=== PATIENT | female | born 1950 | race Caucasian/White ===

== ENCOUNTER 2017-06-15 16:26 | Emergency (ER) | payer MEDICARE, BC ==
[2017-06-15] MEDS ORDERED: Sodium Chloride 0.9% 1,000 ML IV SCH (17:15)
--- NOTE | 2017-06-15 17:15 | EDM.PDOC ---
ED HPI GENERAL MEDICAL PROBLEM - General Chief Complaint: Flank Pain Stated Complaint: KIDNEY STONE Time Seen by Provider: 06/15/17 17:10 Source of Information: Reports: Patient, Family History Limitations: Reports: No Limitations - History of Present Illness INITIAL COMMENTS - FREE TEXT/NARRATIVE: pt has left flank pain. This was vry severe for a while and she was vomiting. Onset: Other ( Some pain in the last 2-3 days. ) Duration: Day(s):, Colic Location: Reports: Back, Other ( flank area. ) Associated Symptoms: Reports: No Other Symptoms - Related Data Allergies Allergy/AdvReac Type Severity Reaction Status Date / Time No Known Allergies Allergy Verified 06/15/17 16:57 Past Medical History Cardiovascular History: Reports: High Cholesterol Genitourinary History: Reports: Renal Calculus Endocrine/Metabolic History: Reports: Hyperparathyroidism Social & Family History - Tobacco Use Smoking Status *Q: Never Smoker ED ROS GENERAL - Review of Systems Review Of Systems: See Below Constitutional: Reports: No Symptoms HEENT: Reports: No Symptoms Respiratory: Reports: No Symptoms Cardiovascular: Reports: No Symptoms Endocrine: Reports: No Symptoms GI/Abdominal: Reports: Other (pt has flank pain) : Reports: Flank Pain, Other (no dysuria. ) Musculoskeletal: Reports: No Symptoms Skin: Reports: No Symptoms Psychiatric: Reports: Anxiety ED EXAM, RENAL/ - Physical Exam Exam: See Below Text/Narrative:: pt has been having pain in the left flank This has been on and off for the past 2-3 days. Exam Limited By: No Limitations General Appearance: Alert, Anxious, Mild Distress Ears: Normal TMs Nose: Normal Inspection Throat/Mouth: Normal Inspection Head: Atraumatic Neck: Normal Inspection Respiratory/Chest: No Respiratory Distress Cardiovascular: Regular Rate, Rhythm GI/Abdominal: Soft, Non-Tender (Female) Exam: Deferred Rectal (Female) Exam: Deferred Back Exam: Normal Inspection Extremities: Normal Inspection Neurological: Alert, Oriented, Normal Cognition Psychiatric: Normal Affect Course - Vital Signs Last Recorded V/S: Last Vital Signs Temp 36.7 C 06/15/17 17:02 Pulse 86 06/15/17 17:02 Resp 16 06/15/17 17:02 BP Pulse Ox 97 06/15/17 17:02 - Orders/Labs/Meds Orders: Active Orders 24 hr Category Date Time Status Abdomen Pelvis wo Cont [CT] Stat Exams 06/15/17 17:09 Taken Sodium Chloride 0.9% [Normal Saline] 1,000 ml Med 06/15/17 17:15 Active IV ASDIRECTED Medication Orders Sodium Chloride (Normal Saline) 1,000 mls @ 999 mls/hr IV ASDIRECTED APOLLO Last Admin: 06/15/17 17:17 Dose: 999 mls/hr Labs: Laboratory Tests 06/15/17 06/15/17 06/15/17 Range/Units 16:58 17:15 17:15 WBC 10.5 (4.5-11.0) K/uL RBC 4.27 (3.30-5.50) M/uL Hgb 12.5 (12.0-15.0) g/dL Hct 38.0 (36.0-48.0) % MCV 89 (80-98) fL MCH 29 (27-31) pg MCHC 33 (32-36) % Plt Count 347 (150-400) K/uL Neut % (Auto) 72 H (36-66) % Lymph % (Auto) 20 L (24-44) % [place] % (Auto) 7 H (2-6) % Eos % (Auto) 1 L (2-4) % Baso % (Auto) 1 (0-1) % Sodium 140 (140-148) mmol/L Potassium 3.7 (3.6-5.2) mmol/L Chloride 108 (100-108) mmol/L Carbon Dioxide 24 (21-32) mmol/L Anion Gap 8.2 (5.0-14.0) mmol/L BUN 26 H (7-18) mg/dL Creatinine 1.0 (0.6-1.0) mg/dL Est Cr Clr Drug Dosing 48.79 mL/min Estimated GFR (MDRD) 55 L (>60) Glucose 111 H (74-106) mg/dL Calcium 9.1 (8.5-10.1) mg/dL Total Bilirubin 0.3 (0.2-1.0) mg/dL AST 14 L (15-37) U/L ALT 24 (12-78) U/L Alkaline Phosphatase 49 (46-116) U/L Total Protein 7.6 (6.4-8.2) g/dL Albumin 3.9 (3.4-5.0) g/dL Globulin 3.7 H (2.3-3.5) g/dL Albumin/Globulin Ratio 1.1 L (1.2-2.2) Urine Color Yellow Urine Appearance Cloudy Urine pH 5.0 (4.5-8.0) Ur Specific [place] 1.025 (1.008-1.030) Urine Protein 30 H (NEGATIVE) mg/dL Urine Glucose (UA) Normal (NEGATIVE) mg/dL Urine Ketones Negative (NEGATIVE) mg/dL Urine Occult Blood Large (NEGATIVE) Urine Nitrite Negative (NEGATIVE) Urine Bilirubin Negative (NEGATIVE) Urine Urobilinogen Normal (NORMAL) mg/dL Ur Leukocyte Esterase Negative (NEGATIVE) Urine RBC Semi-packed H (0-5) Urine WBC 5-10 H (0-5) Ur Epithelial Cells Moderate Amorphous Sediment Few Urine Bacteria Few Urine Mucus Few Urine Other See note Meds: Medications Generic Name Dose Route Start Last Admin Trade Name Freq PRN Reason Stop Dose Admin Sodium Chloride 1,000 mls @ 999 mls/hr 06/15/17 17:15 06/15/17 17:17 Normal Saline IV 999 mls/hr ASDIRECTED APOLLO Administration - Re-Assessments/Exams Free Text/Narrative Re-Assessment/Exam: 06/15/17 17:25 pt arrived with pain in the left flank. She has a packed field of rbcs . 06/15/17 18:12 cat scan showed a 7 mm stone in the pelvis of the left kidney. This is probably causing the pain Departure - Departure Time of Disposition: 18:13 Disposition: Home, Self-Care 01 Condition: Fair Clinical Impression: Kidney stone on left side - Discharge Information Referrals: PCP,None [Primary Care Provider] - Forms: ED Department Discharge Care Plan Goals: torodol 10mg q6h prn for pain, push fluids, appt with urology, zoforan 4mg q6h prn for nausea. - My Orders Last 24 Hours: My Active Orders 06/15/17 17:09 Abdomen Pelvis wo Cont [CT] Stat 06/15/17 17:15 Sodium Chloride 0.9% [Normal Saline] 1,000 ml IV ASDIRECTED - Assessment/Plan Last 24 Hours: My Active Orders 06/15/17 17:09 Abdomen Pelvis wo Cont [CT] Stat 06/15/17 17:15 Sodium Chloride 0.9% [Normal Saline] 1,000 ml IV ASDIRECTED
== END 2017-06-15 18:59 | disposition home or self-care (01) ==
LOC: JP.ED 16:26
DX: N20.0 Calculus of kidney (principal); E78.00 Pure hypercholesterolemia, unspecified; E21.3 Hyperparathyroidism, unspecified
CPT/HCPCS: 36415; 74176; 80053; 81001; 85025; 96360; 99284; J7040

== ENCOUNTER 2021-05-03 06:16 | Day surgery (SDC) | payer MEDICARE, BC ==
[2021-05-03] MEDS ORDERED: Sodium Chloride 0.9% 10 ML Syringe FLUSH PRN (07:15)
[2021-05-03 08:08] VITALS: BP 163/86; PULSE 72
--- NOTE | 2021-05-03 16:08 | OR ---
DATE OF PROCEDURE: 05/03/2021 SURGEON: Patti Rivera MD POSTOPERATIVE CARE: Postoperative care will be provided mainly at the [address] [place] [address] [facility] in conjunction with [facility]. PREOPERATIVE DIAGNOSIS: Cataract, left eye. POSTOPERATIVE DIAGNOSIS: Cataract, left eye. PROCEDURE: Phacoemulsification with intraocular lens placement, left eye. ANESTHESIA: Topical and intracameral. ESTIMATED BLOOD LOSS: Minimal. COMPLICATIONS: None. PATHOLOGY SPECIMENS: None. SURGICAL FINDINGS: None. INDICATION FOR PROCEDURE: The patient is a 70-year-old female with history of a visually significant cataract in the left eye, which interfered with activities of daily living. This consisted of a nuclear sclerosis cataract. Following careful discussion of the risks, benefits and alternatives to cataract extraction with intraocular lens placement including blindness and , the patient elected to proceed, and informed, written consent was obtained prior to the procedure. DESCRIPTION OF THE PROCEDURE: The patient was previously identified, and a frantz placed above the left eye. All sources, including the patient, indicated that the left eye was the correct eye. The patient was subsequently taken to the operating room where standard monitors were applied. The patient was then prepped and draped in the usual sterile fashion for ophthalmic surgery. Attention was first directed at the 12 o'clock position where a paracentesis port was fashioned. Shugar solution followed by Viscoat was instilled into the eye. Attention was then directed to the 8:30 position where a triplanar incision was made in a near-clear manner using a keratome. A continuous capsulorrhexis was then made using a combination of the cystotome and Utrata forceps. Hydrodissection was achieved using a balanced salt solution, and the lens rotated nicely. Phacoemulsification was then done using a modified [id number] technique without complication. Phaco time was 9.2 CDE. The remaining cortex was removed using the irrigation/aspiration handpiece. Provisc was then instilled into the eye. A Technis lens, model DCB00, at 21.5 diopters was then placed in the capsular bag using an [place] injector. The remaining viscoelastic was removed using the irrigation/aspiration forceps. All wounds were then checked and found to be watertight. The lid speculum and drapes were removed. Maxitrol ointment was placed in the patient's left eye, and the eye was shielded. The patient tolerated the procedure well. The patient was instructed to follow up tomorrow. All needle and sponge counts were correct at the end of the procedure. Patti Rivera MD /[id number]
== END 2021-05-03 08:12 | disposition home or self-care (01) ==
LOC: JP.SDS 06:16
PROVIDERS: ATTEND Ophthalmology
DX: H25.12 Age-related nuclear cataract, left eye (principal); E78.5 Hyperlipidemia, unspecified; E21.3 Hyperparathyroidism, unspecified; Z91.040 Latex allergy status
CPT/HCPCS: 66984; V2632

== ENCOUNTER 2022-10-05 13:49 | Emergency (ER) | payer MEDICARE, BC ==
[2022-10-05 14:13] VITALS: BP 129/89; PULSE 97
== END 2022-10-05 14:42 | disposition home or self-care (01) ==
LOC: JP.ED 13:49
DX: N39.0 Urinary tract infection, site not specified (principal); E78.00 Pure hypercholesterolemia, unspecified; I10 Essential (primary) hypertension; Z91.040 Latex allergy status; Z79.899 Other long term (current) drug therapy
CPT/HCPCS: 81001; 87086; 87088; 87186; 99284

== ENCOUNTER 2023-03-27 13:55 | Emergency (ER) | payer MEDICARE, BC ==
[2023-03-27 14:57] LABS: BASOPHILS ABSOLUTE AUTO 0.05 K/uL (0.00-0.10); BASOPHILS PERCENT AUTO 0.4 % (0.1-1.3); EOSINOPHILS ABSOLUTE AUTO 0.13 K/uL (0.00-0.40); EOSINOPHILS PERCENT AUTO 1.2 % (0.0-5.4); HEMATOCRIT 33.4 % (34.3-46.0); HEMOGLOBIN 11.3 g/dL (11.2-15.5); IMMATURE GRAN ABSOLUTE AUTO 0.05 K/uL (0.00-0.23); IMMATURE GRAN PERCENT AUTO 0.4 % (0.0-0.7); LYMPHOCYTES ABSOLUTE AUTO 1.79 K/uL (0.8-3.3); LYMPHOCYTES PERCENT AUTO 16.1 % (11.4-47.7); MEAN CORPUSCULAR HEMOGLOBIN 30.3 pg (31.6-35.5); MEAN CORPUSCULAR HGB CONC 33.8 g/dL (31.6-35.5); MEAN CORPUSCULAR VOLUME 89.5 fL (81.4-99.0); MONOCYTES ABSOLUTE AUTO 0.58 K/uL (0.20-0.90); MONOCYTES PERCENT AUTO 5.2 % (3.3-12.6); NEUTROPHILS ABSOLUTE AUTO 8.55 K/uL (1.0-7.6); NEUTROPHILS PERCENT AUTO 76.7 % (40.0-78.1); PLATELET COUNT,PLT 332 K/uL (130-375); RED BLOOD CELL COUNT 3.73 M/uL (3.77-5.24); WHITE BLOOD CELL COUNT,WBC 11.2 K/uL (3.2-11.0)
[2023-03-27 15:20] LABS: CALCIUM 8.7 mg/dL (8.5-10.1); EST CRCL DRUG DOSING (CG) 47.18 mL/min; POTASSIUM,K 3.6 mmol/L (3.6-5.2)
[2023-03-27 15:21] LABS: ANION GAP 14.6 mmol/L (5.0-14.0)
[2023-03-27] MEDS ORDERED: Aspirin 81 MG Tab.Chew PO ONE (15:23)
[2023-03-27] MEDS ORDERED: Heparin Sodium 5,000 Units/ML Vial IVPUSH ONE (16:43)
[2023-03-27] MEDS ORDERED: Heparin Sodium/D5W 25,000 UNITS/500 ML BAG IV SCH (16:45)
[2023-03-27 18:51] VITALS: BP 121/81; PULSE 82
== END 2023-03-27 18:51 ==
LOC: JP.ED 13:55
DX: I21.4 Non-ST elevation (NSTEMI) myocardial infarction (principal); I10 Essential (primary) hypertension; E78.00 Pure hypercholesterolemia, unspecified; K21.9 Gastro-esophageal reflux disease without esophagitis; Z91.040 Latex allergy status; Z79.899 Other long term (current) drug therapy
CPT/HCPCS: 36415; 80048; 84484; 85025; 93005; 96365; 96376; 99285; A9270; J1644

== ENCOUNTER 2023-04-04 10:12 | Emergency (ER) | payer MEDICARE, BC ==
[2023-04-04 11:30] LABS: BASOPHILS ABSOLUTE AUTO 0.04 K/uL (0.00-0.10); BASOPHILS PERCENT AUTO 0.4 % (0.1-1.3); EOSINOPHILS ABSOLUTE AUTO 0.18 K/uL (0.00-0.40); EOSINOPHILS PERCENT AUTO 1.7 % (0.0-5.4); HEMATOCRIT 20.7 % (34.3-46.0); IMMATURE GRAN ABSOLUTE AUTO 0.08 K/uL (0.00-0.23); IMMATURE GRAN PERCENT AUTO 0.8 % (0.0-0.7); LYMPHOCYTES ABSOLUTE AUTO 2.29 K/uL (0.8-3.3); LYMPHOCYTES PERCENT AUTO 22.1 % (11.4-47.7); MEAN CORPUSCULAR HEMOGLOBIN 30.8 pg (31.6-35.5); MEAN CORPUSCULAR HGB CONC 33.3 g/dL (31.6-35.5); MEAN CORPUSCULAR VOLUME 92.4 fL (81.4-99.0); MONOCYTES ABSOLUTE AUTO 0.64 K/uL (0.20-0.90); MONOCYTES PERCENT AUTO 6.2 % (3.3-12.6); NEUTROPHILS ABSOLUTE AUTO 7.11 K/uL (1.0-7.6); NEUTROPHILS PERCENT AUTO 68.8 % (40.0-78.1); PLATELET COUNT,PLT 303 K/uL (130-375); RED BLOOD CELL COUNT 2.24 M/uL (3.77-5.24); WHITE BLOOD CELL COUNT,WBC 10.3 K/uL (3.2-11.0)
[2023-04-04 11:34] LABS: HEMOGLOBIN 6.9 g/dL (11.2-15.5)
[2023-04-04 11:51] LABS: A/G RATIO 0.9 (1.2-2.2); ALANINE AMINOTRANSFERASE,ALT 51 U/L (12-78); ALKALINE PHOSPHATASE 66 U/L (46-116); ANION GAP 12.9 mmol/L (5.0-14.0); ASPARTATE AMNIOTRANSFERASE,AST 29 U/L (15-37); BILIRUBIN TOTAL 0.3 mg/dL (0.2-1.0); BLOOD UREA NITROGEN,BUN 24 mg/dL (7-18); CALCIUM 8.3 mg/dL (8.5-10.1); CARBON DIOXIDE,CO2 21 mmol/L (21-32); CHLORIDE,CL 107 mmol/L (100-108); CREATININE 0.8 mg/dL (0.6-1.0); ESTIMATED GFR 79 mL/min (>60); GLUCOSE RANDOM 106 mg/dL (74-106); POTASSIUM,K 3.9 mmol/L (3.6-5.2); PROTEIN TOTAL,TP 6.3 g/dL (6.4-8.2); SODIUM,NA 137 mmol/L (140-148)
[2023-04-04] MEDS ORDERED: Sodium Chloride 0.9% 10 ML Syringe FLUSH PRN (12:34)
[2023-04-04 14:50] VITALS: BP 119/73; PULSE 85
== END 2023-04-04 15:00 ==
LOC: JP.ED 10:12
DX: K92.2 Gastrointestinal hemorrhage, unspecified (principal); K21.9 Gastro-esophageal reflux disease without esophagitis; E78.00 Pure hypercholesterolemia, unspecified; I10 Essential (primary) hypertension; Z91.048 Other nonmedicinal substance allergy status; Z79.82 Long term (current) use of aspirin; Z79.899 Other long term (current) drug therapy
CPT/HCPCS: 36415; 36430; 80053; 82270; 85025; 86850; 86900; 86901; 86920; 86922; 99285; J3490; P9016

== ENCOUNTER 2023-04-11 07:21 | Emergency (ER) | payer MEDICARE, BC ==
[2023-04-11 08:12] LABS: BASOPHILS ABSOLUTE AUTO 0.05 K/uL (0.00-0.10); BASOPHILS PERCENT AUTO 0.5 % (0.1-1.3); EOSINOPHILS ABSOLUTE AUTO 0.25 K/uL (0.00-0.40); EOSINOPHILS PERCENT AUTO 2.5 % (0.0-5.4); HEMATOCRIT 21.8 % (34.3-46.0); HEMOGLOBIN 7.1 g/dL (11.2-15.5); IMMATURE GRAN ABSOLUTE AUTO 0.07 K/uL (0.00-0.23); IMMATURE GRAN PERCENT AUTO 0.7 % (0.0-0.7); LYMPHOCYTES ABSOLUTE AUTO 2.51 K/uL (0.8-3.3); LYMPHOCYTES PERCENT AUTO 24.8 % (11.4-47.7); MEAN CORPUSCULAR HEMOGLOBIN 30.9 pg (31.6-35.5); MEAN CORPUSCULAR HGB CONC 32.6 g/dL (31.6-35.5); MEAN CORPUSCULAR VOLUME 94.8 fL (81.4-99.0); MONOCYTES ABSOLUTE AUTO 0.58 K/uL (0.20-0.90); MONOCYTES PERCENT AUTO 5.7 % (3.3-12.6); NEUTROPHILS ABSOLUTE AUTO 6.67 K/uL (1.0-7.6); NEUTROPHILS PERCENT AUTO 65.8 % (40.0-78.1); PLATELET COUNT,PLT 440 K/uL (130-375); WHITE BLOOD CELL COUNT,WBC 10.1 K/uL (3.2-11.0)
[2023-04-11] MEDS ORDERED: Pantoprazole 40 MG Vial IVPUSH ONE (14:37)
[2023-04-11 16:10] VITALS: BP 140/85; PULSE 82
== END 2023-04-11 16:38 | disposition home or self-care (01) ==
LOC: JP.ED 07:21
DX: K92.2 Gastrointestinal hemorrhage, unspecified (principal); E78.00 Pure hypercholesterolemia, unspecified; K21.9 Gastro-esophageal reflux disease without esophagitis; I10 Essential (primary) hypertension; Z95.5 Presence of coronary angioplasty implant and graft; Z91.040 Latex allergy status; Z79.82 Long term (current) use of aspirin; Z79.899 Other long term (current) drug therapy
CPT/HCPCS: 36415; 36430; 85025; 86850; 86900; 86901; 86920; 86922; 96374; 99284; C9113; P9016

== ENCOUNTER 2023-10-17 09:24 | Emergency (ER) | payer MEDICARE, BC ==
[2023-10-17] MEDS ORDERED: Sodium Chloride 0.9% 10 ML Syringe FLUSH PRN ×2 (09:58→10:11)
[2023-10-17] MEDS ORDERED: Sodium Chloride 0.9% 500 ML IV ONE (10:00)
[2023-10-17] MEDS ORDERED: Pantoprazole 40 MG Vial IVPUSH ONE ×2 (10:00→10:11)
[2023-10-17 10:05] LABS: BASOPHILS ABSOLUTE AUTO 0.05 K/uL (0.00-0.10); BASOPHILS PERCENT AUTO 0.4 % (0.1-1.3); EOSINOPHILS ABSOLUTE AUTO 0.13 K/uL (0.00-0.40); HEMATOCRIT 20.7 % (34.3-46.0); IMMATURE GRAN ABSOLUTE AUTO 0.18 K/uL (0.00-0.23); IMMATURE GRAN PERCENT AUTO 1.3 % (0.0-0.7); LYMPHOCYTES ABSOLUTE AUTO 3.44 K/uL (0.8-3.3); LYMPHOCYTES PERCENT AUTO 25.6 % (11.4-47.7); MEAN CORPUSCULAR HEMOGLOBIN 30.2 pg (31.6-35.5); MEAN CORPUSCULAR HGB CONC 32.4 g/dL (31.6-35.5); MEAN CORPUSCULAR VOLUME 93.2 fL (81.4-99.0); MONOCYTES PERCENT AUTO 5.2 % (3.3-12.6); NEUTROPHILS ABSOLUTE AUTO 8.92 K/uL (1.0-7.6); NEUTROPHILS PERCENT AUTO 66.5 % (40.0-78.1); PLATELET COUNT,PLT 432 K/uL (130-375); RED BLOOD CELL COUNT 2.22 M/uL (3.77-5.24); WHITE BLOOD CELL COUNT,WBC 13.4 K/uL (3.2-11.0)
[2023-10-17 10:06] LABS: HEMOGLOBIN 6.7 g/dL (11.2-15.5)
[2023-10-17 10:19] LABS: BLOOD UREA NITROGEN,BUN 26 mg/dL (7-18); CALCIUM 8.2 mg/dL (8.5-10.1); CARBON DIOXIDE,CO2 20 mmol/L (21-32); CHLORIDE,CL 105 mmol/L (100-108); CREATININE 0.9 mg/dL (0.6-1.0); ESTIMATED GFR 68 mL/min (>60); GLUCOSE RANDOM 161 mg/dL (74-106); POTASSIUM,K 3.9 mmol/L (3.6-5.2); SODIUM,NA 138 mmol/L (140-148)
[2023-10-17 10:27] LABS: ANION GAP 16.9 mmol/L (5.0-14.0)
[2023-10-17 10:28] LABS: TROPONIN I HIGH SENSITIVITY 63.7 pg/mL (<=60.3)
[2023-10-17 10:35] LABS: PROTHROMBIN TIME 9.9 sec (9.2-10.6); PTT,PARTIAL THROMBOPLSTIN TIME 22.1 sec (21.8-27.3)
[2023-10-17 10:50] LABS: CORONAVIRUS COVID-19 NAA NEGATIVE (NEGATIVE); INFLUENZA A NAA NEGATIVE (NEGATIVE); INFLUENZA B NAA NEGATIVE (NEGATIVE); RESPIRATORY SYNCYTIAL VIR NAA NEGATIVE (NEGATIVE)
[2023-10-17 16:09] LABS: HEMOGLOBIN 8.9 g/dL (11.2-15.5)
[2023-10-17 17:01] VITALS: BP 157/94; PULSE 84
== END 2023-10-17 17:09 | disposition home or self-care (01) ==
LOC: JP.ED 09:24
DX: D50.0 Iron deficiency anemia secondary to blood loss (chronic) (principal); K92.2 Gastrointestinal hemorrhage, unspecified; I25.118 Atherosclerotic heart disease of native coronary artery with other forms of angina pectoris; Z95.5 Presence of coronary angioplasty implant and graft; Z20.822 Contact with and (suspected) exposure to COVID-19; E78.00 Pure hypercholesterolemia, unspecified; I10 Essential (primary) hypertension; K21.9 Gastro-esophageal reflux disease without esophagitis; Z91.040 Latex allergy status
CPT/HCPCS: 0241U; 36415; 36430; 71045; 80048; 84484; 85014; 85018; 85025; 85610; 85730; 86850; 86900; 86901; 86920; 86922; 93005; 96361; 96374; 99285; C9113; J7040; P9016

== ENCOUNTER 2025-02-12 09:21 | Emergency (ER) | payer MEDICARE, BC, MEDICAID ==
[2025-02-12 10:00] VITALS: PULSE 60
[2025-02-12 10:09] VITALS: BP 167/93
== END 2025-02-12 10:20 | disposition home or self-care (01) ==
LOC: JP.ED 09:21
DX: I11.9 Hypertensive heart disease without heart failure (principal); E78.00 Pure hypercholesterolemia, unspecified; K21.9 Gastro-esophageal reflux disease without esophagitis; Z87.891 Personal history of nicotine dependence; Z91.040 Latex allergy status; Z79.82 Long term (current) use of aspirin; Z79.899 Other long term (current) drug therapy
CPT/HCPCS: 99283